=== PATIENT | female | born 1945 | race Caucasian/White ===

== ENCOUNTER → 2024-06-09 14:29 | Outpatient (REF) | payer OTHER, SELFPAY | LOC: HWWDC 14:29 | PROVIDERS: ATTENDING PHYSICIAN Nurse Practitioner Adult Health | DX: Z12.31 Encounter for screening mammogram for malignant neoplasm of breast (principal) | CPT/HCPCS: 77063; 77067 ==

== ENCOUNTER → 2025-04-06 08:42 | Outpatient (REF) | payer OTHER, SELFPAY | LOC: RAD 08:42 | PROVIDERS: ATTENDING PHYSICIAN Internal Medicine Rheumatology; FAMILY PHYSICIAN Nurse Practitioner Adult Health | DX: M81.0 Age-related osteoporosis without current pathological fracture (principal) | CPT/HCPCS: 77080 ==